=== PATIENT | male | born 1955 | race American Indian/Alaskan Native ===

== ENCOUNTER 2017-04-03 13:35 | Emergency (ER) | payer OTHER ==
[2017-04-03 14:15] VITALS: BMI 19.9
[2017-04-03 14:19] VITALS: RESP 18; TEMP 98.4; O2SAT 98
--- NOTE | 2017-04-03 17:47 | C.PDOC ---
Time Seen by Provider: 04/03/17 16:10 Chief Complaint (Nursing): Cough, Cold, Congestion History Per: Patient, Family Onset/Duration Of Symptoms: Days (about 2 weeks) Current Symptoms Are (Timing): Still Present Associated Symptoms: Cough, Sputum Severity: Moderate Additional History Per: Prior Records Past Medical History Reviewed: Historical Data, Nursing Documentation, Vital Signs Vital Signs: Last Vital Signs Temp 98.4 F 04/03/17 14:18 Pulse 69 04/03/17 14:18 Resp 18 04/03/17 14:18 BP 104/70 04/03/17 14:18 Pulse Ox 98 04/03/17 14:18 - Medical History PMH: Colonic Polyps, Fractures (hand/ankle (casted)), HTN, Pneumonia (2013), Seizures - [facility] Procedures EXCISION OF GREATER OMENTUM, OPEN APPROACH (03/30/16) EXCISION OF RECTUM, OPEN APPROACH (03/30/16) RELEASE LESSER OMENTUM, OPEN APPROACH (03/30/16) RESECTION OF SIGMOID COLON, OPEN APPROACH (03/30/16) ROBOTIC ASSISTED PROCEDURE OF TRUNK REGION, OPEN APPROACH (03/30/16) Family History: States: Unknown Family Hx - Social History Hx Tobacco Use: Yes Hx Alcohol Use: Yes Hx Substance Use: No - Immunization History Hx Tetanus Toxoid Vaccination: No Hx Influenza Vaccination: No Hx Pneumococcal Vaccination: No Review Of Systems Except As Marked, All Systems Reviewed And Found Negative. Constitutional: Negative for: Fever Respiratory: Positive for: Cough, Sputum. Negative for: Hemoptysis Gastrointestinal: Negative for: Vomiting Genitourinary: Negative for: Dysuria Musculoskeletal: Negative for: Neck Pain Skin: Negative for: Rash Neurological: Negative for: Weakness, Numbness Physical Exam - Physical Exam Appears: Non-toxic, No Acute Distress Skin: Normal Color, Warm, Dry Head: Atraumatic, Normacephalic Eye(s): bilateral: PERRL, EOMI Neck: Normal ROM, Supple Cardiovascular: Rhythm Regular Respiratory: No Accessory Muscle Use, Rhonchi Gastrointestinal/Abdominal: Soft, No Tenderness Back: No CVA Tenderness Extremity: Normal ROM, No Pedal Edema, No Calf Tenderness Neurological/Psych: Oriented x3, Normal Speech, Normal Motor, Normal Sensation ED Course And Treatment O2 Sat by Pulse Oximetry: 98 Pulse Ox Interpretation: Normal - Radiology CXR: Interpreted by Me, Viewed By Me CXR Interpretation: Yes: COPD Disposition Counseled Patient/Family Regarding: Studies Performed, Diagnosis, Need For Followup, Rx Given, Smoking Cessation - Disposition Disposition: HOME/ ROUTINE Disposition Time: 17:47 Condition: STABLE Additional Instructions: Follow up with your doctor this week. Return to the ER if you develop fever, shortness of breath, worsening of symptoms or if you have any other concerns. Prescriptions: Albuterol HFA [Ventolin HFA 90 mcg/actuation (8 g)] 2 puff IH Q4 PRN #1 unit PRN Reason: Cough And Congestion Azithromycin [Zithromax] 1 dose PO DAILY #1 pkt Instructions: Acute Bronchitis (ED) - Clinical Impression Clinical Impression: Bronchitis
[2017-04-03 17:59] VITALS: BP 115/78; PULSE 79
--- NOTE | 2017-04-04 06:53 | RAD ---
Chest x-ray two views History: Productive cough. Smoker. Comparison: 03/30/2016 Findings: Biapical pleural thickening with upper lobe granulomatous changes. Patchy increased markings in the right midlung zone laterally, nonspecific. Clinical correlation. No gross pleural effusion. Heart size within normal limits. Tortuous aorta. Degenerative changes spine and shoulders. Impression: Biapical pleural thickening with upper lobe granulomatous changes. Patchy increased markings in the right midlung zone laterally, nonspecific. Clinical correlation. No gross pleural effusion. If there is concern for underlying pulmonary nodule, consider further evaluation with chest CT.
== END 2017-04-03 18:00 | disposition home or self-care (01) ==
LOC: C.ER 13:35
DX: J40 Bronchitis, not specified as acute or chronic (principal); I10 Essential (primary) hypertension; Z72.0 Tobacco use

== ENCOUNTER 2017-07-28 07:20 | Day surgery (SDC) | payer OTHER ==
[2017-07-28] MEDS ORDERED: Propofol 10 mg/ml Inj (20 ML) ONE (08:29)
[2017-07-28] MEDS ORDERED: Lactated Ringer's 1,000 ML IV ONE (08:59)
--- NOTE | 2017-07-28 09:01 | CP.SDSHP ---
Same Day Surgery H & P - History Proposed Procedure: egd. colonoscopy Pre-Op Diagnosis: abnormal CT of gastric mucosa. h/o large sigmoid polyp (2016) - Previous Medical/Surgical History Cardiac: Hypertension Endocrine/Metabolic: ETOH Abuse Neuro: Seizure Disorder Misc: Anemia Previous Surgical History: sigmoid resection. left and right meniscus surgery - Allergies Allergies: Allergies No Known Allergies Allergy (Verified 04/03/17 14:14) - Physical Exam Vital Signs: Vital Signs 07/28/17 07:45 Temperature 97.4 F L Pulse Rate 52 L Respiratory 19 Rate Blood Pressure 105/72 O2 Sat by Pulse 97 Oximetry Mental Status: Alert & Oriented x3 Neuro: WNL Heart: WNL Lungs: WNL GI: WNL - Impression Impression: h/o large sigmoid polyp. abnormal CT Scan of stomach - Date & Time Date: 07/28/17 Time: 09:02 Short Stay Discharge - Short Stay Discharge Admitting Diagnosis/Reason for Visit: BENIGN NEOPLASM OF SIGMOID COLON, RIGHT LQP Disposition: HOME/ ROUTINE
[2017-07-28] MEDS ORDERED: Pantoprazole 40 mg EC Tab PO STA (09:02)
[2017-07-28 09:09] VITALS: O2SAT 100
[2017-07-28 10:46] VITALS: BP 97/63; PULSE 60; RESP 14; TEMP 97.2
== END 2017-07-28 10:40 | disposition home or self-care (01) ==
LOC: C.ENDO 07:20
PROVIDERS: ATTEND Internal Medicine Gastroenterology
DX: K25.9 Gastric ulcer, unspecified as acute or chronic, without hemorrhage or perforation (principal); K26.9 Duodenal ulcer, unspecified as acute or chronic, without hemorrhage or perforation; K31.9 Disease of stomach and duodenum, unspecified; K29.70 Gastritis, unspecified, without bleeding; K63.5 Polyp of colon
CPT/HCPCS: 43239; 45388; 88305; 88312; 88342; J2001; J2704; J3010; J7120